=== PATIENT | female | born 1930 | race Asian ===

== ENCOUNTER 2018-11-30 10:05 | Outpatient (CLI) | payer OTHER | END 2018-11-30 19:20 | disposition home or self-care (01) | LOC: RAD 10:05 → MAMMO 11:00 → RAD 19:20 | DX: Z13.820 Encounter for screening for osteoporosis (principal); M81.0 Age-related osteoporosis without current pathological fracture ==

== ENCOUNTER 2020-08-03 07:58 | Emergency (ER) | payer OTHER ==
[~2020-08-03] VITALS: Ht 152.4 cm; Wt 38.6 kg
[2020-08-03 07:58] VITALS: TEMP 97
[2020-08-03 08:56] LABS: PLATELET COUNT 263 K/uL (152-353)
[2020-08-03 09:10] LABS: POTASSIUM 3.4 mmol/L (3.6-5.2)
[2020-08-03 15:50] VITALS: BP 70/19
== END 2020-08-03 18:58 | disposition expired ==
LOC: ED 08:06
PROVIDERS: Family Medicine
PROC: 0T9B70Z Drainage of Bladder with Drainage Device, Via Natural or Artificial Opening (ICD-10-PCS; principal; 2020-08-03)
PROC: 5A12012 Performance of Cardiac Output, Single, Manual (ICD-10-PCS; 2020-08-03)
PROC: 0BH17EZ Insertion of Endotracheal Airway into Trachea, Via Natural or Artificial Opening (ICD-10-PCS; 2020-08-03)
PROC: 5A1935Z Respiratory Ventilation, Less than 24 Consecutive Hours (ICD-10-PCS; 2020-08-03)
DX: J18.9 Pneumonia, unspecified organism (principal); A41.9 Sepsis, unspecified organism; I46.9 Cardiac arrest, cause unspecified; Z20.828 Contact with and (suspected) exposure to other viral communicable diseases
CPT/HCPCS: 31500; 36600; 51702; 80053; 81000; 82805; 83605; 84484; 85027; 87040; 87502; 87635; 87651; 92950; 93005; 94002; 96360; 96361; 96365; 96366; 96372; 96375; 96376; 99285; 99291; C1726; J0171; J0696; J1265; J1610; J3490; U0003